=== PATIENT | female | born 1940 | race Caucasian/White ===

== ENCOUNTER 2022-08-19 01:30 | Inpatient (IN) | payer MEDICARE, OTHER ==
[~2022-08-19] VITALS: Ht 157.5 cm; Wt 92.1 kg
--- NOTE | 2022-08-19 01:20 | NUR ---
RECEIVED PT. BY [facility] # [id number], LYNETTE STATES NO PROBLEMS EN-ROUTE, PT. IS FULLY AWAKE AND ORIENTED, SON AT BEDSIDE, PT. SPEAKING MOSTLY AZERBAIJANI, SON AND JOSE BARCLAYSHUBHAM TO INTERPRET FOR PT., SPEECH CLEAR AND APPROPRIATE, ABLE TO MOVE ALL EXTREMITIES, SKIN CHECK DONE, NO FINDINGS, IV SITES TO LEFT AC AND RIGHT HAND, PT. C/O PAIN TO LEFT AC IV SITE AND LEAKAGE NOTED, WILL DISCONTINUE,, BP 90/55 WITH MAP OF 71, HEART RATE 107 AND IRREGULAR, PT. MADE COMFORTABLE, WILL FOLLOW UP WITH ORDERS OR CALL DOCTOR FOR ORDERS.
--- NOTE | 2022-08-19 02:00 | NUR ---
Son still at bedside, pt. wanting to go home but explained need for meds and evaluate kidneys and heart. son placed transmitter at bedside for pt.' back, pt. denies pain at his time, earlier c/o large headache.
[2022-08-19 02:10] VITALS: BP 90/55
[2022-08-19] MEDS ORDERED: NALOXONE HCL 0.4 MG/ML AMPUL IV ONE (03:00)
[2022-08-19] MEDS ORDERED: MELATONIN 3 MG TABLET PO PRN (04:00)
[2022-08-19] MEDS ORDERED: DILTIAZEM HCL 25 MG IV IV PRN (04:00)
[2022-08-19] MEDS ORDERED: DOCUSATE SODIUM 100 MG CAPSULE PO PRN (04:00)
[2022-08-19 04:50] VITALS: BP 92/54
[2022-08-19] MEDS ORDERED: PIPERACILLIN SODIUM/TAZOBACTAM 3.375 G in IV DEXTROSE 5% 50 ML IV ONE (05:00)
--- NOTE | 2022-08-19 05:00 | NUR ---
Tylenol given, normal saline started at 50 ml/hr.
[2022-08-19] MEDS: IV NS 1000 ML 1,000 ML IV SCH (05:09)
[2022-08-19] MEDS: ACETAMINOPHEN 325 MG TABLET PO PRN (05:09)
[2022-08-19] MEDS ORDERED: PIPERACILLIN/TAZOBACTAM/D5W 50 ML IV ONE (05:30)
[2022-08-19] MEDS ORDERED: PIPERACILLIN SODIUM/TAZOBACTAM 3.375 G in IV DEXTROSE 5% 50 ML IV SCH (06:00)
--- NOTE | 2022-08-19 07:00 | NUR ---
Pt. finally sleeping, no problems from zosyn iv, iv site wnl.
[2022-08-19 07:08] LABS: HEMATOCRIT 34.2 % (31.2-41.9); MEAN CORPUSCULAR HEMOGLOBIN 33.2 uug (24.7-32.8); MEAN CORPUSCULAR VOLUME 103.1 fL (75.5-95.3); PLATELET COUNT (AUTO) 109 K/uL (179-408)
--- NOTE | 2022-08-19 07:20 | NUR ---
SHIFT REPORT REPORT GIVEN TO HOLLIS CHART REVIEW YES SBAR GIVEN YES
[2022-08-19 07:43] LABS: CARBON DIOXIDE 27 mmol/L (21-32); CHLORIDE 108 mmol/L (98-107); CREATININE 1.6 mg/dL (0.6-1.3); GLUCOSE 102 mg/dL (74-106); MAGNESIUM 2.2 mg/dL (1.8-2.4); PHOSPHOROUS 4.9 mg/dL (2.5-4.9); POTASSIUM 4.4 mmol/L (3.5-5.1); UREA NITROGEN, BLOOD 57 mg/dL (7-18)
[2022-08-19 11:50] VITALS: BP 115/59
[2022-08-19] MEDS: PIPERACILLIN SODIUM/TAZOBACTAM 3.375 G in IV DEXTROSE 5% 100 ML IV SCH ×2 (13:44→22:03)
[2022-08-19] MEDS: ALPRAZOLAM 0.5 MG TABLET PO PRN ×2 (14:46→22:32)
[2022-08-19] MEDS: DILTIAZEM HCL 25 MG IV IV PRN ×2 (15:07→20:32)
[2022-08-19] MEDS: FAMOTIDINE 20 MG TABLET PO SCH (16:36)
[2022-08-19 16:45] VITALS: BP 98/52
[2022-08-19] MEDS ORDERED: HYDR-894 PO (18:31)
[2022-08-19] MEDS ORDERED: LISI40TA13 PO (18:31)
[2022-08-19] MEDS ORDERED: FERR325T28 PO (18:31)
[2022-08-19] MEDS ORDERED: METO-358 PO (18:31)
[2022-08-19] MEDS ORDERED: APIX5TAB4 PO (18:31)
[2022-08-19] MEDS ORDERED: ALPR0.5T8 PO (18:31)
[2022-08-19] MEDS ORDERED: PANT40TA49 PO (18:31)
[2022-08-19] MEDS ORDERED: voltaren TOP (18:31)
[2022-08-19] MEDS ORDERED: METF-440 PO (18:31)
[2022-08-19] MEDS ORDERED: CHOL400C8 PO (18:31)
[2022-08-19] MEDS ORDERED: GABA-536 PO (18:31)
[2022-08-19] MEDS ORDERED: OXYC15TA2 PO (18:31)
[2022-08-19] MEDS ORDERED: FENT1PAT5 TD (18:31)
[2022-08-19] MEDS ORDERED: FAMO20TA8 PO (18:31)
--- NOTE | 2022-08-19 19:27 | NUR ---
11:00-REC'D REPORT FROM HOLLIS WHOM IS BEEN SENT HOME AT THIS TIME. REC'D PATIENT IN ROOM, AWAKE, SITTING AT BEDSIDE, [place] SPEAKING. ABLE TO VERBALIZE HER NEEDS AND FOLLOW DIRECTIONS. PATIENT WITH ONGOING NS IVF HYDRATION, IV TO RT BACK OF HAND INFUSING WELL, SITE INTACT., PATIENT SOMEWHAT ANXIOUS, NOTED PULSE ELEVATED, 104-115-124, ERRATICALLY FLUCTUATING. OBTAINED ORDERS FROM Dr. PEREIRA FOR PRN XANAX/ASPIRIN 81MG DAILY/PEPCID 20MG BID. ORDERS NOTED AND CARRIED OUT. 1446-MEDICATED PATIENT PRN WITH XANAX FOR ANXIETY ORDERED BY MD. PATIENT'S VS FOLLOWS: BP 128/75, R20, P118. 1507-PATIENT CONTINUES WITH ERRATIC HR 134-146, IV CARDIZEM 10MG PRN Q4HRS HR>120 ADMINISTERED ORDERED BY MD. PATIENT DENIES CHEST PAIN, HEADACHE, DIZZINESS, NAUSEA, AND NO VOMITING NOTED. SPEECH CLEAR, ALL EXTREMITIES EQUAL IN STRENGTH, PATIENT ABLE TO STAND UP AND AMBULATE WITH NO CHANGES FROM HER BASELINE. POST CARDIZEM ASSESSMENT HR70 ON THE PORTABLE VS MACHINE, ON THE MONITOR HR 89+ CONTINUES FLUCTUATING. CHARGE NURSE AWARE., CHARGE NURSE SPOKE TO PATIENT'S DTR AND GATHER MEDICATION FROM HOME INFORMATION AND INPUT IT IN THE SYSTEM, Dr. PEREIRA NOTIFIED TO FURTHER REVIEW PATIENT'S MEDICATION. PATIENT CONTINUES UNDER TELE MONITOR. ENDORSED PROPERLY TO INCOMING RELIEVING RN.
[2022-08-19 20:00] VITALS: BP 141/82
--- NOTE | 2022-08-19 23:00 | NUR ---
PATIENT STILL HAVE ELEVATED HEART RATE OF 133, NOTIFY DR. PEREIRA WITH ORDER. CONT TO MONITOR.
[2022-08-19] MEDS: METFORMIN HCL 500 MG TABLET PO SCH (23:13)
[2022-08-19] MEDS: GABAPENTIN 400 MG CAPSULE PO SCH (23:14)
[2022-08-20] VITALS: BP 144/78
[2022-08-20 04:00] VITALS: BP_SYST 120; BP_SYST 143; BP_DIAS 54; BP_DIAS 55
[2022-08-20] MEDS: IV NS 1000 ML 1,000 ML IV SCH (04:53)
[2022-08-20] MEDS: PIPERACILLIN SODIUM/TAZOBACTAM 3.375 G in IV DEXTROSE 5% 100 ML IV SCH ×3 (05:17→21:04)
[2022-08-20 07:04] LABS: HEMATOCRIT 32.7 % (31.2-41.9); MEAN CORPUSCULAR HEMOGLOBIN 33.6 uug (24.7-32.8); MEAN CORPUSCULAR VOLUME 102.2 fL (75.5-95.3); PLATELET COUNT (AUTO) 118 K/uL (179-408)
--- NOTE | 2022-08-20 07:24 | NUR ---
PATIENT AWAKE ALERT, NO SOB NO CHEST PAIN, STILL WITH EPISODE OF ELEVATED HEART RATE, ASSISTED WITH TOILETING, CONTINENT OF URINE AND INCONTINENT. NO COMPLAIN OF PAIN, SEEN BY DR PEREIRA LAST NIGHT, AWARE OF ELEVATED HEART RATE, NO S/S OF DISTRESS. CONT TO MONITOR.
[2022-08-20 07:34] LABS: CREATININE 0.8 mg/dL (0.6-1.3); MAGNESIUM 2.2 mg/dL (1.8-2.4); PHOSPHOROUS 3.4 mg/dL (2.5-4.9)
--- NOTE | 2022-08-20 08:30 | NUR ---
received pt on bed. sleeping. no respiratory distress noted. on room air. covid isolation still in placed. commode at bedside. call light in reach. bed locked. will cont to monitor.
[2022-08-20] MEDS ORDERED: FAMOTIDINE 20 MG TABLET PO SCH (09:00)
[2022-08-20 09:20] LABS: NEUTROPHILS % (MANUAL) 0 % (42-75)
[2022-08-20] MEDS: GABAPENTIN 400 MG CAPSULE PO SCH (09:52)
[2022-08-20] MEDS: FERROUS SULFATE 325 MG TABEC PO SCH (09:52)
[2022-08-20] MEDS: FAMOTIDINE 20 MG TABLET PO SCH (09:52)
[2022-08-20] MEDS: ASPIRIN 81 MG TAB.CHEW PO SCH (09:52)
[2022-08-20] MEDS: CHOLECALCIFEROL 1,000 UNIT TABLET PO SCH (09:52)
[2022-08-20] MEDS: METFORMIN HCL 500 MG TABLET PO SCH (09:53)
[2022-08-20] MEDS: LISINOPRIL 20 MG TABLET PO SCH (09:53)
[2022-08-20] MEDS: METOPROLOL SUCCINATE XL 50 MG TAB.SR.24H PO SCH (09:53)
[2022-08-20] MEDS: APIXABAN 2.5 MG TABLET PO SCH ×2 (09:54→20:45)
[2022-08-20] MEDS: DILTIAZEM HCL 25 MG IV IV PRN ×2 (11:33→21:03)
[2022-08-20] MEDS: hydrALAZINE HCL 25 MG TABLET PO SCH ×2 (11:35→17:54)
[2022-08-20 11:38] VITALS: BP 134/83
[2022-08-20] MEDS: ZINC SULFATE 220 MG CAPSULE PO SCH (14:16)
[2022-08-20] MEDS: ASCORBIC ACID 500 MG TABLET PO SCH ×2 (14:18→17:55)
[2022-08-20] MEDS: DILTIAZEM HCL 30 MG TABLET PO SCH ×3 (14:26→22:28)
[2022-08-20 17:00] VITALS: BP 121/88
--- NOTE | 2022-08-20 18:00 | NUR ---
shift note pt aox4. no acute distress noted. ambulatory with assist. HR elevated 120s-130s. md is aware. prn Cardizem iv push was given for elevated >120. critical lab value reported trop 57 md made aware no new order. skin intact. all needs attended. call light with in reach. bed locked. covid isolation maintained. urine and sputum was not collected. will endorsed to oncoming shift.
[2022-08-20 20:00] VITALS: BP 145/96
[2022-08-20] MEDS: MELATONIN 3 MG TABLET PO SCH (20:46)
[2022-08-20] MEDS: ALPRAZOLAM 0.5 MG TABLET PO PRN (21:10)
--- NOTE | 2022-08-20 23:00 | NUR ---
patient noted with elevated heart rate of 130, cardizem given at 2228. patient verbalized anxiousness, xanax given but patient still noted restless.
[2022-08-21] VITALS: BP 113/56
[2022-08-21 00:41] LABS: *BILIRUBIN,URIN NEGATIVE (NEGATIVE); *BLOOD, URINE NEGATIVE (NEGATIVE); *CLARITY,URINE CLEAR (CLEAR); *COLOR,URINE YELLOW (YELLOW); *KETONES,URINE NEGATIVE (NEGATIVE); *UROBILINOGEN,URINE 0.2 E.U./dl (NORMAL); LEUKOCYTE ESTERASE ,URINE NEGATIVE (NEGATIVE); NITRITE, URINE NEGATIVE (NEGATIVE); PH,URINE 5.5 (5.0-8.0); UGLUCOSE NEGATIVE (NEGATIVE)
[2022-08-21] MEDS: ACETAMINOPHEN 325 MG TABLET PO PRN (02:38)
[2022-08-21 04:00] VITALS: BP 142/72
--- NOTE | 2022-08-21 04:56 | NUR ---
0000 patient started npo mid- night for abdominal ultrasound in am 0456 patient in his bed sleeping comfortable. SR with hr 89 on tele. noted with iv line dislodged. per patient he does not need iv line right now and he wants the iv line to be inserted in morning. Risks and Benefits Explained to patient. patient still refusing. no iv fluids or iv ATB due. will endorse to morning shift. Addendum: 08/21/22 at 0641 by RAVEN OSUNA RN by mistake documented.
[2022-08-21] MEDS: PIPERACILLIN SODIUM/TAZOBACTAM 3.375 G in IV DEXTROSE 5% 100 ML IV SCH ×2 (05:27→13:18)
[2022-08-21] MEDS: DILTIAZEM HCL 30 MG TABLET PO SCH ×2 (05:28→13:16)
[2022-08-21] MEDS: PANTOPRAZOLE SODIUM 40 MG TABLET.DR PO SCH (06:06)
--- NOTE | 2022-08-21 06:42 | NUR ---
patient slept well and remained stable. no sob or resp distress noted. NSR on tele. iv line on RH was pulled out. new IVline started on RH # 22G. iv ATB given and no adverse reaction noted.v/s wnl. all needs met and attended. will endorse to day shift.
[2022-08-21 06:58] LABS: HEMATOCRIT 35.3 % (31.2-41.9); MEAN CORPUSCULAR HEMOGLOBIN 33.8 uug (24.7-32.8); MEAN CORPUSCULAR VOLUME 101.8 fL (75.5-95.3); PLATELET COUNT (AUTO) 140 K/uL (179-408)
[2022-08-21 07:34] LABS: CARBON DIOXIDE 31 mmol/L (21-32); CHLORIDE 103 mmol/L (98-107); CREATININE 0.8 mg/dL (0.6-1.3); GLUCOSE 104 mg/dL (74-106); PHOSPHOROUS 3.7 mg/dL (2.5-4.9); UREA NITROGEN, BLOOD 17 mg/dL (7-18)
[2022-08-21 07:38] LABS: IRON, SERUM 55 ug/dL (50-175)
[2022-08-21] MEDS: ZINC SULFATE 220 MG CAPSULE PO SCH (09:00)
[2022-08-21] MEDS: ASPIRIN 81 MG TAB.CHEW PO SCH (09:00)
[2022-08-21] MEDS: APIXABAN 2.5 MG TABLET PO SCH ×2 (09:00→20:43)
[2022-08-21] MEDS: GABAPENTIN 400 MG CAPSULE PO SCH (09:01)
[2022-08-21] MEDS: FERROUS SULFATE 325 MG TABEC PO SCH (09:01)
[2022-08-21] MEDS: CHOLECALCIFEROL 1,000 UNIT TABLET PO SCH (09:01)
[2022-08-21] MEDS: ASCORBIC ACID 500 MG TABLET PO SCH ×3 (09:04→17:55)
[2022-08-21 09:09] VITALS: BP 120/94
[2022-08-21] MEDS: METOPROLOL SUCCINATE XL 50 MG TAB.SR.24H PO SCH (09:11)
[2022-08-21] MEDS: LISINOPRIL 20 MG TABLET PO SCH (09:11)
[2022-08-21] MEDS: METFORMIN HCL 500 MG TABLET PO SCH (09:12)
[2022-08-21] MEDS: hydrALAZINE HCL 25 MG TABLET PO SCH ×2 (09:12→17:55)
[2022-08-21 12:04] VITALS: BP 128/71
[2022-08-21] MEDS: ALPRAZOLAM 0.5 MG TABLET PO PRN (13:16)
[2022-08-21] MEDS ORDERED: DILTIAZEM HCL 30 MG TABLET PO ONE (14:30)
[2022-08-21 15:51] VITALS: BP 112/87
[2022-08-21 20:00] VITALS: BP 153/92
[2022-08-21] MEDS: MELATONIN 3 MG TABLET PO SCH (20:42)
[2022-08-21] MEDS: FAMOTIDINE 20 MG TABLET PO SCH (20:43)
[2022-08-21] MEDS: DILTIAZEM HCL 60 MG TABLET PO SCH (21:04)
[2022-08-21] MEDS ORDERED: DILTIAZEM HCL 30 MG TABLET PO SCH (22:00)
[2022-08-22] MEDS: DILTIAZEM HCL 60 MG TABLET PO SCH ×3 (05:39→13:41)
[2022-08-22] MEDS: PANTOPRAZOLE SODIUM 40 MG TABLET.DR PO SCH (05:40)
--- NOTE | 2022-08-22 06:00 | NUR ---
pt rested well in between care; occ tachy; anxious at times but refusing xanax; will continue to monitor.
[2022-08-22] MEDS: DILTIAZEM HCL 25 MG IV IV PRN (06:28)
[2022-08-22 06:41] LABS: HEMATOCRIT 35.6 % (31.2-41.9); MEAN CORPUSCULAR HEMOGLOBIN 33.8 uug (24.7-32.8); PLATELET COUNT (AUTO) 155 K/uL (179-408)
[2022-08-22 07:03] LABS: CREATININE 0.6 mg/dL (0.6-1.3); PHOSPHOROUS 4.1 mg/dL (2.5-4.9); POTASSIUM 3.9 mmol/L (3.5-5.1)
[2022-08-22 07:45] VITALS: BP 142/99
[2022-08-22 07:51] LABS: MAGNESIUM 1.8 mg/dL (1.8-2.4)
[2022-08-22] MEDS: ASPIRIN 81 MG TAB.CHEW PO SCH (10:33)
[2022-08-22] MEDS: ZINC SULFATE 220 MG CAPSULE PO SCH (10:34)
[2022-08-22] MEDS: METOPROLOL SUCCINATE XL 50 MG TAB.SR.24H PO SCH (10:35)
[2022-08-22] MEDS: ASCORBIC ACID 500 MG TABLET PO SCH ×3 (10:36→18:05)
[2022-08-22] MEDS: GABAPENTIN 400 MG CAPSULE PO SCH (10:37)
[2022-08-22] MEDS: CHOLECALCIFEROL 1,000 UNIT TABLET PO SCH (10:37)
[2022-08-22] MEDS: APIXABAN 2.5 MG TABLET PO SCH ×2 (10:39→20:09)
[2022-08-22] MEDS: FERROUS SULFATE 325 MG TABEC PO SCH (10:40)
[2022-08-22] MEDS: LISINOPRIL 20 MG TABLET PO SCH (10:40)
[2022-08-22] MEDS: hydrALAZINE HCL 25 MG TABLET PO SCH ×2 (10:40→18:05)
[2022-08-22] MEDS: METFORMIN HCL 500 MG TABLET PO SCH (10:43)
[2022-08-22 11:28] VITALS: BP 139/87
[2022-08-22] MEDS: ACETAMINOPHEN 325 MG TABLET PO PRN (11:49)
[2022-08-22] MEDS: SOD FERRIC GLUC COMPLX/SUCROSE 125 MG in IV NORMAL SALINE 100 ML IV SCH (14:03)
[2022-08-22 16:21] VITALS: BP 151/96
--- NOTE | 2022-08-22 19:23 | NUR ---
Patient awake and alert laying in bed, no sob no chest pain or distress noted. report off to pm nurse
[2022-08-22] MEDS: MELATONIN 3 MG TABLET PO SCH (20:08)
[2022-08-22] MEDS: FAMOTIDINE 20 MG TABLET PO SCH (20:08)
[2022-08-22 20:25] VITALS: BP 133/74
[2022-08-22] MEDS: DILTIAZEM HCL 30 MG TABLET PO SCH (21:56)
--- NOTE | 2022-08-22 22:24 | NUR ---
seen by Dr Atkins with new orders and carried out; will continue to monitor
[2022-08-23 00:08] VITALS: BP 142/87
[2022-08-23] MEDS: ACETAMINOPHEN 325 MG TABLET PO PRN ×2 (04:14→10:01)
[2022-08-23 04:35] VITALS: BP 150/88
[2022-08-23] MEDS: PANTOPRAZOLE SODIUM 40 MG TABLET.DR PO SCH (06:16)
[2022-08-23] MEDS: DILTIAZEM HCL 30 MG TABLET PO SCH ×3 (06:18→21:22)
[2022-08-23 07:00] LABS: HEMATOCRIT 33.1 % (31.2-41.9); MEAN CORPUSCULAR HEMOGLOBIN 34.1 uug (24.7-32.8); MEAN CORPUSCULAR VOLUME 100.6 fL (75.5-95.3); PLATELET COUNT (AUTO) 142 K/uL (179-408)
[2022-08-23 07:35] LABS: CARBON DIOXIDE 29 mmol/L (21-32); CHLORIDE 105 mmol/L (98-107); CREATININE 0.7 mg/dL (0.6-1.3); GLUCOSE 106 mg/dL (74-106); MAGNESIUM 1.7 mg/dL (1.8-2.4); PHOSPHOROUS 5.5 mg/dL (2.5-4.9); POTASSIUM 4.1 mmol/L (3.5-5.1); UREA NITROGEN, BLOOD 17 mg/dL (7-18)
[2022-08-23 08:00] VITALS: BP 145/77
[2022-08-23] MEDS: CHOLECALCIFEROL 1,000 UNIT TABLET PO SCH (10:00)
[2022-08-23] MEDS: METFORMIN HCL 500 MG TABLET PO SCH (10:00)
[2022-08-23] MEDS: ZINC SULFATE 220 MG CAPSULE PO SCH (10:01)
[2022-08-23] MEDS: METOPROLOL SUCCINATE XL 50 MG TAB.SR.24H PO SCH (10:02)
[2022-08-23] MEDS: ASPIRIN 81 MG TAB.CHEW PO SCH (10:03)
[2022-08-23] MEDS: LISINOPRIL 20 MG TABLET PO SCH (10:03)
[2022-08-23] MEDS: GABAPENTIN 400 MG CAPSULE PO SCH (10:03)
[2022-08-23] MEDS: FERROUS SULFATE 325 MG TABEC PO SCH (10:04)
[2022-08-23] MEDS: hydrALAZINE HCL 25 MG TABLET PO SCH ×2 (10:04→17:41)
[2022-08-23] MEDS: ASCORBIC ACID 500 MG TABLET PO SCH ×3 (10:04→17:35)
[2022-08-23] MEDS: APIXABAN 2.5 MG TABLET PO SCH ×2 (10:06→20:42)
[2022-08-23] MEDS ORDERED: MAGNESIUM OXIDE 400 MG TABLET PO ONE (11:00)
[2022-08-23 13:00] VITALS: BP_SYST 130; BP_SYST 150; BP_DIAS 101; BP_DIAS 66
[2022-08-23] MEDS: SOD FERRIC GLUC COMPLX/SUCROSE 125 MG in IV NORMAL SALINE 100 ML IV SCH (13:26)
[2022-08-23 16:20] VITALS: BP 140/80
--- NOTE | 2022-08-23 18:12 | NUR ---
Patient's sons visit this shift and request for Ms Sanders to have fentanyl patch and oxycodone as part of her medications list because that's what she has been taken at home for her pain. Dr Atkins made aware of family members request states that he will talk to them about it.
[2022-08-23 20:35] VITALS: BP 159/88
[2022-08-23] MEDS: ALPRAZOLAM 0.5 MG TABLET PO PRN (20:38)
[2022-08-23] MEDS: FAMOTIDINE 20 MG TABLET PO SCH (20:38)
[2022-08-23] MEDS: MELATONIN 3 MG TABLET PO SCH (20:39)
[2022-08-23] MEDS: DIGOXIN 125 MCG TABLET PO SCH (23:20)
[2022-08-24 00:28] VITALS: BP 104/62
[2022-08-24 04:32] VITALS: BP 123/63
[2022-08-24] MEDS: DILTIAZEM HCL 30 MG TABLET PO SCH ×3 (05:36→22:24)
[2022-08-24] MEDS: PANTOPRAZOLE SODIUM 40 MG TABLET.DR PO SCH (06:20)
[2022-08-24 07:21] LABS: HEMATOCRIT 34.4 % (31.2-41.9); MEAN CORPUSCULAR HEMOGLOBIN 33.4 uug (24.7-32.8); MEAN CORPUSCULAR VOLUME 100.6 fL (75.5-95.3); PLATELET COUNT (AUTO) 141 K/uL (179-408)
[2022-08-24 07:25] LABS: CARBON DIOXIDE 30 mmol/L (21-32); CHLORIDE 105 mmol/L (98-107); CREATININE 0.5 mg/dL (0.6-1.3); GLUCOSE 96 mg/dL (74-106); MAGNESIUM 1.7 mg/dL (1.8-2.4); PHOSPHOROUS 5.5 mg/dL (2.5-4.9); POTASSIUM 3.9 mmol/L (3.5-5.1); UREA NITROGEN, BLOOD 12 mg/dL (7-18)
[2022-08-24] MEDS: ASCORBIC ACID 500 MG TABLET PO SCH ×3 (09:38→17:06)
[2022-08-24] MEDS: FERROUS SULFATE 325 MG TABEC PO SCH (09:39)
[2022-08-24] MEDS: GABAPENTIN 400 MG CAPSULE PO SCH ×2 (09:39→22:23)
[2022-08-24] MEDS: LISINOPRIL 20 MG TABLET PO SCH (09:39)
[2022-08-24] MEDS: ZINC SULFATE 220 MG CAPSULE PO SCH (09:39)
[2022-08-24] MEDS: METOPROLOL SUCCINATE XL 50 MG TAB.SR.24H PO SCH (09:39)
[2022-08-24] MEDS: CHOLECALCIFEROL 1,000 UNIT TABLET PO SCH (09:39)
[2022-08-24] MEDS: METFORMIN HCL 500 MG TABLET PO SCH (09:39)
[2022-08-24] MEDS: ASPIRIN 81 MG TAB.CHEW PO SCH (09:40)
[2022-08-24] MEDS: DIGOXIN 125 MCG TABLET PO SCH (09:40)
[2022-08-24] MEDS: hydrALAZINE HCL 25 MG TABLET PO SCH ×2 (09:44→17:07)
[2022-08-24] MEDS: GLUCERNA SHAKE 237 ML CAN PO SCH (09:49)
[2022-08-24] MEDS: APIXABAN 2.5 MG TABLET PO SCH ×2 (09:49→22:22)
[2022-08-24] MEDS ORDERED: MAGNESIUM OXIDE 400 MG TABLET PO ONE (12:00)
[2022-08-24 12:51] VITALS: BP 116/74
[2022-08-24] MEDS ORDERED: GABAPENTIN 100 MG CAPSULE PO SCH (14:30)
[2022-08-24] MEDS: SOD FERRIC GLUC COMPLX/SUCROSE 125 MG in IV NORMAL SALINE 100 ML IV SCH (15:09)
[2022-08-24 16:00] VITALS: BP 136/78
[2022-08-24 20:00] VITALS: BP 158/94
[2022-08-24] MEDS: MELATONIN 3 MG TABLET PO SCH (22:24)
[2022-08-24] MEDS: FAMOTIDINE 20 MG TABLET PO SCH (22:24)
[2022-08-25 05:00] VITALS: BP 132/69
[2022-08-25] MEDS: ACETAMINOPHEN 325 MG TABLET PO PRN ×2 (06:53→21:20)
[2022-08-25] MEDS: DILTIAZEM HCL 30 MG TABLET PO SCH ×3 (06:54→21:01)
[2022-08-25] MEDS: PANTOPRAZOLE SODIUM 40 MG TABLET.DR PO SCH (06:54)
[2022-08-25 07:03] LABS: HEMATOCRIT 34.2 % (31.2-41.9); MEAN CORPUSCULAR HEMOGLOBIN 34.1 uug (24.7-32.8); MEAN CORPUSCULAR VOLUME 100.7 fL (75.5-95.3); PLATELET COUNT (AUTO) 132 K/uL (179-408)
--- NOTE | 2022-08-25 07:30 | NUR ---
REPORT GIVEN TO HERNAN ERICKSON
[2022-08-25 07:42] LABS: CREATININE 0.6 mg/dL (0.6-1.3); MAGNESIUM 1.6 mg/dL (1.8-2.4); PHOSPHOROUS 5.7 mg/dL (2.5-4.9); POTASSIUM 4.1 mmol/L (3.5-5.1)
[2022-08-25] MEDS: hydrALAZINE HCL 25 MG TABLET PO SCH ×3 (09:00→16:56)
[2022-08-25] MEDS: METOPROLOL SUCCINATE XL 50 MG TAB.SR.24H PO SCH (09:00)
[2022-08-25] MEDS: FERROUS SULFATE 325 MG TABEC PO SCH (09:53)
[2022-08-25] MEDS: CHOLECALCIFEROL 1,000 UNIT TABLET PO SCH (09:54)
[2022-08-25] MEDS: GABAPENTIN 400 MG CAPSULE PO SCH ×2 (09:54→20:43)
[2022-08-25] MEDS: ASCORBIC ACID 500 MG TABLET PO SCH ×3 (09:54→16:56)
[2022-08-25] MEDS: APIXABAN 2.5 MG TABLET PO SCH ×2 (09:55→20:43)
[2022-08-25] MEDS: METFORMIN HCL 500 MG TABLET PO SCH (09:55)
[2022-08-25] MEDS: ASPIRIN 81 MG TAB.CHEW PO SCH (09:55)
[2022-08-25] MEDS: ZINC SULFATE 220 MG CAPSULE PO SCH (09:55)
[2022-08-25] MEDS: LISINOPRIL 20 MG TABLET PO SCH (10:02)
[2022-08-25] MEDS: DIGOXIN 125 MCG TABLET PO SCH (10:02)
[2022-08-25] MEDS: GLUCERNA SHAKE 237 ML CAN PO SCH (10:03)
[2022-08-25] MEDS: MAGNESIUM SULFATE/D5W 100 ML IV SCH ×2 (11:45→13:09)
[2022-08-25 11:55] VITALS: BP 126/56
--- NOTE | 2022-08-25 12:31 | NUR ---
pt's O2 is fluctuating from 79-81%, even though she says she isn't feeling any SOB or distress. I notified Dr Atkins and put her on 2L oxygen via nasal cannula.
--- NOTE | 2022-08-25 12:34 | NUR ---
pt's O2 got to 96 % on 2OL, I switched her on 1 L.
[2022-08-25] MEDS ORDERED: ALBUTEROL SULFATE 8 GM HFA.AER.AD IH PRN (13:00)
[2022-08-25 15:52] VITALS: BP 138/74
[2022-08-25 20:00] VITALS: BP 149/80
[2022-08-25] MEDS: ALPRAZOLAM 0.5 MG TABLET PO PRN (20:43)
[2022-08-25] MEDS: MELATONIN 3 MG TABLET PO SCH (20:44)
[2022-08-25] MEDS: FAMOTIDINE 20 MG TABLET PO SCH (20:44)
[2022-08-26] VITALS: BP 138/77
[2022-08-26 04:00] VITALS: BP 126/76
[2022-08-26] MEDS: PANTOPRAZOLE SODIUM 40 MG TABLET.DR PO SCH (06:16)
[2022-08-26] MEDS: DILTIAZEM HCL 30 MG TABLET PO SCH ×2 (06:16→14:07)
[2022-08-26 08:07] LABS: HEMATOCRIT 34.8 % (31.2-41.9); MEAN CORPUSCULAR HEMOGLOBIN 33.5 uug (24.7-32.8); MEAN CORPUSCULAR VOLUME 101.1 fL (75.5-95.3); PLATELET COUNT (AUTO) 126 K/uL (179-408)
[2022-08-26 08:20] LABS: CREATININE 0.6 mg/dL (0.6-1.3); MAGNESIUM 1.7 mg/dL (1.8-2.4); PHOSPHOROUS 5.2 mg/dL (2.5-4.9); POTASSIUM 3.9 mmol/L (3.5-5.1)
[2022-08-26] MEDS: CHOLECALCIFEROL 1,000 UNIT TABLET PO SCH (09:15)
[2022-08-26] MEDS: ACETAMINOPHEN 325 MG TABLET PO PRN ×2 (09:16→17:53)
[2022-08-26] MEDS: METFORMIN HCL 500 MG TABLET PO SCH (09:17)
[2022-08-26] MEDS: ASPIRIN 81 MG TAB.CHEW PO SCH (09:17)
[2022-08-26] MEDS: FERROUS SULFATE 325 MG TABEC PO SCH (09:17)
[2022-08-26] MEDS: ZINC SULFATE 220 MG CAPSULE PO SCH (09:21)
[2022-08-26] MEDS: ASCORBIC ACID 500 MG TABLET PO SCH ×3 (09:21→17:54)
[2022-08-26] MEDS: DIGOXIN 125 MCG TABLET PO SCH (09:21)
[2022-08-26] MEDS: GABAPENTIN 400 MG CAPSULE PO SCH (09:22)
[2022-08-26] MEDS: GLUCERNA SHAKE 237 ML CAN PO SCH (09:23)
[2022-08-26] MEDS: APIXABAN 2.5 MG TABLET PO SCH (09:25)
[2022-08-26] MEDS: hydrALAZINE HCL 25 MG TABLET PO SCH ×2 (10:18→17:53)
[2022-08-26] MEDS: METOPROLOL SUCCINATE XL 50 MG TAB.SR.24H PO SCH (10:19)
[2022-08-26] MEDS: LISINOPRIL 20 MG TABLET PO SCH (10:20)
[2022-08-26] MEDS: MAGNESIUM SULFATE/D5W 100 ML IV SCH ×2 (10:26→12:24)
[2022-08-26 11:37] VITALS: BP 131/66
[2022-08-26 15:47] VITALS: BP 122/68
[2022-08-26 17:53] VITALS: BP 144/76
--- NOTE | 2022-08-26 18:28 | NUR ---
PATIENT NEGATIVE FOR COVID DISCHARGED TO SNF BY . MEDICATED WITH TYLENOL TABS 2 PRIOR TO DISCHARGE.. PT PICKED UP BY AMBULANCE TRANSPORTED TO [facility].
[2022-08-26] MEDS ORDERED: DILT5VIA9 IV (19:24)
[2022-08-26] MEDS ORDERED: FAMO20TA8 PO ×2 (19:24)
[2022-08-26] MEDS ORDERED: ASCO500T21 PO (19:24)
[2022-08-26] MEDS ORDERED: MELA3TAB41 PO (19:24)
[2022-08-26] MEDS ORDERED: ASPI81TA31 PO (19:24)
[2022-08-26] MEDS ORDERED: ALPR0.5T PO (19:24)
[2022-08-26] MEDS ORDERED: DOCU-141 PO (19:24)
[2022-08-26] MEDS ORDERED: GABA-536 PO (19:24)
[2022-08-26] MEDS ORDERED: DIGO125T5 PO (19:24)
[2022-08-26] MEDS ORDERED: DILT30TA35 PO (19:24)
[2022-08-26] MEDS ORDERED: ALBU8HFA4 IH (19:24)
[2022-08-26] MEDS ORDERED: ZINC1CAP3 PO (19:24)
[2022-08-26] MEDS ORDERED: ACET325T53 PO (19:24)
[2022-08-26] MEDS ORDERED: NUT.237L36 PO (19:24)
[2022-08-26] MEDS ORDERED: MAGN400T30 PO (19:24)
== END 2022-08-26 18:15 | DRG 917 ==
LOC: TELE3 01:30
PROVIDERS: ADMIT Internal Medicine; ATTEND Internal Medicine
DX: T40.2X1A Poisoning by other opioids, accidental (unintentional), initial encounter (principal); G93.41 Metabolic encephalopathy; U07.1 COVID-19; N17.0 Acute kidney failure with tubular necrosis; J69.0 Pneumonitis due to inhalation of food and vomit; J98.11 Atelectasis; N39.0 Urinary tract infection, site not specified; I10 Essential (primary) hypertension; E11.9 Type 2 diabetes mellitus without complications; E87.5 Hyperkalemia; K21.9 Gastro-esophageal reflux disease without esophagitis; M06.9 Rheumatoid arthritis, unspecified; M19.90 Unspecified osteoarthritis, unspecified site; Z79.82 Long term (current) use of aspirin; Z79.899 Other long term (current) drug therapy; E78.5 Hyperlipidemia, unspecified; I48.91 Unspecified atrial fibrillation; Y92.89 Other specified places as the place of occurrence of the external cause; Z86.73 Personal history of transient ischemic attack (TIA), and cerebral infarction without residual deficits; Z79.01 Long term (current) use of anticoagulants; E66.9 Obesity, unspecified; Z68.37 Body mass index [BMI] 37.0-37.9, adult; G89.29 Other chronic pain; I25.9 Chronic ischemic heart disease, unspecified
CPT/HCPCS: 36415; 70030-TC; 71045; 83550; 83605; 83735; 84100; 84484; 85025; 85610; 85730; 93005; A4663; G0378; J2310; J2543; J2916; J3475; J3490; J3535; J7040